=== PATIENT | female | born 1995 | race Two or more races ===

== ENCOUNTER 2023-04-23 13:29 | Inpatient (IN) | payer OTHER ==
[~2023-04-23] VITALS: Ht 152.4 cm; Wt 53.5 kg
== END 2023-04-24 12:57 | disposition home or self-care (01) | DRG 779 ==
LOC: CIR.AMB 13:29 → OB/GYN 20:44
PROVIDERS: ADMIT Obstetrics & Gynecology Obstetrics; ATTEND Obstetrics & Gynecology Obstetrics
PROC: BW4GZZZ Ultrasonography of Pelvic Region (ICD-10-PCS; 2023-04-23)
PROC: 10D17Z9 Manual Extraction of Products of Conception, Retained, Via Natural or Artificial Opening (ICD-10-PCS; principal; 2023-04-23 17:30)
DX: O02.1 Missed abortion (principal); Z3A.08 8 weeks gestation of pregnancy; Z20.822 Contact with and (suspected) exposure to COVID-19

== ENCOUNTER 2023-08-04 16:03 | Day surgery (SDC) | payer OTHER ==
[2023-08-03 23:21] LABS: URINE APPEARANCE Clear; URINE BILIRRUBIN Negative (NEGATIVE); URINE BLOOD Moderate; URINE COLOR Yellow; URINE GLUCOSE Negative (NEGATIVE); URINE LEUKOCYTE Negative; URINE NITRATE Negative; URINE PROTEIN Negative (NEGATIVE); URINE UROBILINOGEN 0.2 E.U./dl
[2023-08-03 23:25] LABS: URINE WBC 2.3 uL (0.0-23.2)
[2023-08-03 23:27] LABS: URINE BACTERIA 1.2 uL (0.0-1933)
[~2023-08-04] VITALS: Ht 152.4 cm; Wt 52.6 kg
[2023-08-04 00:15] LABS: HEMATOCRIT 36.8 % (36.0-45.00); HEMOGLOBIN 11.9 g/dL (12.0-15.00); MEAN CELL VOLUME 88.7 fL (80.00-100.00); MEAN CORPUSCULAR HEMOGLOBIN 28.8 pg (27.00-32.0); MEAN CORPUSCULAR HGB CONC 32.4 g/dl (32.0-36.0); PLATELET COUNT 275 K/uL (150-450); RED BLOOD COUNT 4.15 M/uL (4.00-6.00); RED CELL DISTRIBUTION WIDTH 13.2 % (11.5-14.5)
[2023-08-04 01:17] LABS: CALCIUM 9.1 mg/dL (8.5-10.1); CREATININE SERUM 0.76 mg/dL (0.55-1.02); GFR 90.62; POTASSIUM 3.77 mEq/L (3.5-5.1)
[2023-08-04 17:14] LABS: INR 1.04; PROTHROMBIN TIME 10.9 SECONDS (9.0-11.5)
== END 2023-08-05 00:35 | disposition home or self-care (01) ==
LOC: CIR.AMB 16:03 → ER 16:37 → SEC-K 16:37 → O/R 16:37 → SEC-K 17:45 → O/R 17:45 → CIR.AMB 08-05 00:35 → O/R 08-05 00:35
PROVIDERS: General Practice; ATTEND Emergency Medicine
DX: O03.4 Incomplete spontaneous abortion without complication (principal); O72.2 Delayed and secondary postpartum hemorrhage; Z20.822 Contact with and (suspected) exposure to COVID-19

== ENCOUNTER 2025-02-25 12:29 | Emergency (ER) | payer OTHER ==
[~2025-02-25] VITALS: Ht 152.4 cm; Wt 55.8 kg
[2025-02-25 14:52] LABS: BASO % 0.3 % (0.1-1.2); EOS # 0.09 (0.04-0.54); EOS % 0.9 % (0.7-7.0); HEMATOCRIT 33.5 % (34.1-44.9); HEMOGLOBIN 11.8 g/dL (11.2-15.7); LYMPH # 1.63 (1.18-3.74); LYMPH % 17.1 % (19.3-53.1); MEAN CORPUSCULAR HEMOGLOBIN 30.9 pg (25.6-32.2); MONO # 0.59 (0.24-0.82); MONO % 6.2 % (4.7-12.5); NEUT # 7.19 (1.56-6.13); NEUT % 75.2 % (34.0-71.1); PLATELET COUNT 295 K/uL (163-369); RED BLOOD COUNT 3.82 M/uL (3.93-5.22); RED CELL DISTRIBUTION WIDTH 13.5 % (11.6-14.4)
[2025-02-25 14:54] LABS: PH,URINE 6.5 (5.0-8.0); URINE APPEARANCE Clear; URINE BILIRRUBIN Negative (NEGATIVE); URINE BLOOD Negative; URINE COLOR Yellow; URINE GLUCOSE Negative (NEGATIVE); URINE KETONE Negative (NEGATIVE); URINE LEUKOCYTE Trace; URINE NITRATE Negative; URINE PROTEIN Negative (NEGATIVE); URINE UROBILINOGEN 0.2 E.U./dl
[2025-02-25 14:58] LABS: URINE BACTERIA 2478.4 uL (0.0-1933); URINE EPITHELIAL CELLS 42.4 uL (0.0-38.8); URINE RBC 5.4 uL (0.0-20.8); URINE WBC 11.2 uL (0.0-23.2)
[2025-02-25 16:21] LABS: CALCIUM 8.8 mg/dL (8.5-10.1); CREATININE SERUM 0.56 mg/dL (0.55-1.02); GFR 127.99; POTASSIUM 3.87 mEq/L (3.5-5.1)
== END 2025-02-25 20:54 | disposition home or self-care (01) ==
LOC: ER 15:14
PROVIDERS: General Practice
DX: O26.899 Other specified pregnancy related conditions, unspecified trimester (principal); Z3A.20 20 weeks gestation of pregnancy; R10.2 Pelvic and perineal pain

== ENCOUNTER 2025-07-16 14:30 | Inpatient (IN) | payer OTHER ==
[~2025-07-16] VITALS: Ht 152.4 cm; Wt 63.0 kg
[2025-07-20] VITALS (9 sets, daily range): BP systolic 98–130; BP diastolic 61–84
[2025-07-20] MEDS ORDERED: MORPHINE SULFATE 4 MG/ML CARTRIDGE IV PRN (01:45)
[2025-07-20] MEDS ORDERED: RINGERS SOLUTION,LACTATED 1,000 ML IV SCH (01:45)
[2025-07-20] MEDS ORDERED: PRENATA CHEWAB1 EACH PO (03:19)
[2025-07-20] MEDS ORDERED: ERYTHROMYCIN BASE OPHT 1GM EACH TUBE OP ONE ×2 (03:28→08:45)
[2025-07-20] MEDS ORDERED: OXYTOCIN 20 UNITS/1000ML RL PIGGYBAG IV ONE (03:28)
[2025-07-20] MEDS ORDERED: CHLORHEXIDINE GLUCONATE 120 ML BOTTLE TOP ONE ×2 (03:29→08:30)
[2025-07-20] MEDS ORDERED: LIDOCAINE HCL 1% 10ML VIAL ONE (03:29)
[2025-07-20 03:37] LABS: BASO % 0.2 % (0.1-1.2); EOS # 0.02 (0.04-0.54); EOS % 0.2 % (0.7-7.0); LYMPH # 2.40 (1.18-3.74); LYMPH % 23.3 % (19.3-53.1); MEAN PLATELET VOLUME 10.70 fl (9.4-12.4); MONO # 0.80 (0.24-0.82); MONO % 7.8 % (4.7-12.5); NEUT # 7.02 (1.56-6.13); NEUT % 68.1 % (34.0-71.1); RED CELL DISTRIBUTION WIDTH 13.6 % (11.6-14.4)
[2025-07-20 03:57] LABS: INR < 0.93
[2025-07-20 03:58] LABS: ALT/SGPT 20.0 U/L (12-78); AST/SGOT 21.0 U/L (15-37); BILIRUBIN TOTAL 0.3 mg/dL (0.3-1.2); BUN CREA RATIO 19.0 (7.0-25.0); CREATININE SERUM 0.84 mg/dL (0.55-1.02); GFR 79.61; GLOBULINA 3.4 G/DL (2.4-3.5); GLUCOSE FASTING 92.0 mg/dL (65-100); OSMOLALITY SERUM 277.0 MOSM/KG (275-295)
[2025-07-20] MEDS ORDERED: OXYTOCIN 20 UNITS/500ML RL PIGGYBAG IV ONE (04:57)
[2025-07-20] MEDS ORDERED: OXYTOCIN 500 ML IV ONE (05:15)
[2025-07-20] MEDS ORDERED: OXYTOCIN 1,000 ML IV ONE (08:30)
[2025-07-20] MEDS ORDERED: LIDOCAINE HCL 1% 10ML VIAL IJ ONE (08:45)
[2025-07-20] MEDS ORDERED: DOCUSATE SODIUM 100MG CAP PO SCH (09:00)
[2025-07-20] MEDS ORDERED: PNV,CALCIUM 72/IRON/FOLIC ACID 1 TAB TABLET PO SCH (09:00)
[2025-07-21 00:07] VITALS: BP 110/69
[2025-07-21 04:59] VITALS: BP 111/70
[2025-07-21 07:39] LABS: BASO % 0.4 % (0.1-1.2); EOS # 0.03 (0.04-0.54); EOS % 0.2 % (0.7-7.0); LYMPH # 2.75 (1.18-3.74); LYMPH % 18.4 % (19.3-53.1); MEAN PLATELET VOLUME 10.80 fl (9.4-12.4); MONO # 0.99 (0.24-0.82); MONO % 6.6 % (4.7-12.5); NEUT # 11.01 (1.56-6.13); NEUT % 73.8 % (34.0-71.1); RED CELL DISTRIBUTION WIDTH 13.9 % (11.6-14.4)
[2025-07-21 08:38] VITALS: BP 90/60
[2025-07-21 18:14] VITALS: BP 102/72
[2025-07-22 00:14] VITALS: BP 105/66
[2025-07-22 08:00] VITALS: BP 113/73
== END 2025-07-22 15:29 | disposition home or self-care (01) | DRG 807 ==
LOC: OB/GYN 07-20 01:29 → LDR 07-20 01:29 → OB/GYN 07-20 08:19
PROVIDERS: ADMIT Obstetrics & Gynecology; ATTEND Obstetrics & Gynecology Gynecology
PROC: 10E0XZZ Delivery of Products of Conception, External Approach (ICD-10-PCS; principal; 2025-07-20)
PROC: 0UQMXZZ Repair Vulva, External Approach (ICD-10-PCS; 2025-07-20)
PROC: 0UQG7ZZ Repair Vagina, Via Natural or Artificial Opening (ICD-10-PCS; 2025-07-20)
PROC: 4A1HXCZ Monitoring of Products of Conception, Cardiac Rate, External Approach (ICD-10-PCS; 2025-07-20)
DX: O70.0 First degree perineal laceration during delivery (principal); Z37.0 Single live birth; Z3A.39 39 weeks gestation of pregnancy

== ENCOUNTER 2025-07-16 14:43 | Outpatient (CLI) | payer OTHER | END 2025-07-16 16:02 | disposition home or self-care (01) | LOC: NST 14:43 | PROVIDERS: ATTEND Obstetrics & Gynecology | DX: Z34.83 Encounter for supervision of other normal pregnancy, third trimester (principal) ==